=== PATIENT | female | born 1955 | race Caucasian/White ===

== ENCOUNTER 2017-06-21 09:41 | Emergency (ER) | payer MEDICARE, BC ==
[2017-06-21 10:05] VITALS: RESP 18; TEMP 99.2
--- NOTE | 2017-06-21 10:16 | ED PDOC ---
Arrival/HPI - General Chief Complaint: Female Genitourinary Time Seen by Provider: 06/21/17 09:45 Historian: Patient - History of Present Illness Narrative History of Present Illness (Text): 06/21/17 10:12 62 y/o female, pmh including chronic UTI/renal transplant (on immunosuppressant medications)/htn/hypothyroidism, allergic to antithymocyte (causes hypotension which she was intubated because of this medication), c/o urinary frequency and urgency started last night. Pt. stated that she has frequent UTI and usually several times per year which she's very successful with the ciprofloxacin which her own gravity prospecting operator will prescribe it to her, stated that she has very good sensitivity to this fluoroquinolone class without hospitalization. Pt. has no nausea or vomiting, no fever or chills, no night sweat, no dizziness, no numbness or tingling, no palpitation, no rash, no abdominal or flank pain, no other medical or psychological complaints. Past Medical History - Provider Review Nursing Documentation Reviewed: Yes - Infectious Disease Hx of Infectious Diseases: None - Reproductive Menopause: Yes - Renal Hx Dialysis: Yes Other/Comment: kidney tranplant - Endocrine/Metabolic Hx Endocrine Disorders: No - Psychiatric Hx Substance Use: No - Anesthesia Hx Anesthesia: No Family/Social History - Physician Review Nursing Documentation Reviewed: Yes Family/Social History: Unknown Family HX Smoking Status: Unknown If Ever Smoked Hx Alcohol Use: No Hx Substance Use: No Allergies/Home Meds Allergies/Adverse Reactions: Allergies anti thmocyte globulin Allergy (Uncoded 06/21/17 10:16) RASH Home Medications: Home Meds Medication Instructions Recorded Confirmed Aspirin [Ecotrin] 81 mg PO DAILY 06/21/17 06/21/17 Atorvastatin [Lipitor] 40 mg PO DAILY 06/21/17 06/21/17 Calcium [place] 2 tab PO BID 06/21/17 06/21/17 Cholecalciferol [Vitamin D] 1,000 iu PO DAILY 06/21/17 06/21/17 Furosemide [Lasix] 40 mg PO DAILY 06/21/17 06/21/17 Levothyroxine [Levoxyl] 0.125 mg PO DAILY 06/21/17 06/21/17 Mag Oxide 400mg 400 mg PO BID 06/21/17 06/21/17 Mycophenolate Mofetil HCl 750 mg PO BID 06/21/17 06/21/17 [Cellcept] Prednisone [Gus] 5 mg PO DAILY 06/21/17 06/21/17 Ranitidine HCl [Zantac] 150 mg PO DAILY 06/21/17 06/21/17 Repaglinide [Prandin] 2 mg PO TID 06/21/17 06/21/17 Tacrolimus [Prograf] 1 mg PO DAILY 06/21/17 06/21/17 amLODIPine [Norvasc] 10 mg PO DAILY 06/21/17 06/21/17 Review of Systems - Review of Systems Constitutional: absent: Fatigue, Fevers Eyes: absent: Vision Changes ENT: absent: Hearing Changes Respiratory: absent: SOB, Cough Cardiovascular: absent: Chest Pain Gastrointestinal: absent: Abdominal Pain, Nausea, Vomiting Genitourinary Female: Dysuria, Frequency. absent: Hematuria, Urine Output Changes, Vaginal Bleeding, Vaginal Discharge Musculoskeletal: absent: Arthralgias, Myalgias Skin: absent: Rash, Pruritis, Skin Lesions Neurological: absent: Headache, Dizziness Psychiatric: absent: Anxiety, Depression Physical Exam Vital Signs Reviewed: Yes Vital Signs Temp Pulse Resp BP Pulse Ox 06/21/17 09:59 99.2 F 96 H 18 131/86 99 Temperature: Afebrile Blood Pressure: Normal Pulse: Regular Respiratory Rate: Normal Appearance: Positive for: Well-Appearing, Non-Toxic, Comfortable Pain Distress: None Mental Status: Positive for: Alert and Oriented X 3 - Systems Exam Head: Present: Atraumatic, Normocephalic Pupils: Present: PERRL Extroacular Muscles: Present: EOMI Conjunctiva: Present: Normal Mouth: Present: Moist Mucous Membranes Neck: Present: Normal Range of Motion Respiratory/Chest: Present: Clear to Auscultation, Good Air Exchange. No: Respiratory Distress, Accessory Muscle Use Cardiovascular: Present: Regular Rate and Rhythm, Normal S1, S2. No: Murmurs Abdomen: Present: Normal Bowel Sounds. No: Tenderness, Distention, Peritoneal Signs, Rebound, Guarding Back: Present: Normal Inspection. No: CVA Tenderness Upper Extremity: Present: Normal Inspection. No: Cyanosis, Edema Lower Extremity: Present: Normal Inspection. No: Edema Neurological: Present: GCS=15, Speech Normal, Motor Func Grossly Intact, Gait Normal, Memory Normal Skin: Present: Warm, Dry, Normal Color. No: Rashes Psychiatric: Present: Alert, Oriented x 3, Normal Insight, Normal Concentration Medical Decision Making ED Course and Treatment: 06/21/17 10:14 -Pt. is eating and drinking well, no change in energy, no fatigue/fever or chills, no emergent indication of labs indicated except UA and Urine culture. -I discussed with the patient about the fluoroquinolones side effect including but not limited to prolong QT and possible achilles tendon rupture which she stated that she is awared and still prefer ciprofloxacin. -Pending for the UA result. 06/21/17 10:50 -UA show +UTI, pt. stated that she usually placed on cipro for 5 days. Clinically, uncomplicated for 3 days and severe for 7 days, will placed her for 5 days. -Discharge home with ciprofloxacin, pyridium, stay hydrated, stay hydrated, bed rest, follow up with your own pmd and gravity prospecting operator within 2 days, return to the ER for any new or worsening signs or symptoms. - Lab Interpretations Lab Results: Lab Results 06/21/17 10:05: Urine Color Yellow, Urine Appearance Cloudy, Urine pH 6.5, Ur Specific [place] 1.020, Urine Protein 30 H, Urine Glucose (UA) Negative, Urine Ketones Negative, Urine Blood Small H, Urine Nitrate Negative, Urine Bilirubin Negative, Urine Urobilinogen 0.2, Ur Leukocyte Esterase Moderate H, Urine RBC 0 - 2, Urine WBC Tntc, Ur Epithelial Cells 1 - 3, Urine Bacteria Many I have reviewed the lab results: Yes Interpretation: Abnormal lab values (+UTI) - Medication Orders Current Medication Orders: Discontinued Medications Ciprofloxacin (Cipro) 500 mg PO ONCE STA PRN Reason: Protocol Stop: 06/21/17 10:50 - PA / GEOPHYSICAL PROSPECTING SURVEYOR / Resident Statement / has reviewed & agrees with the documentation as recorded. Disposition/Present on Arrival - Present on Arrival Any Indicators Present on Arrival: No History of DVT/PE: No History of Uncontrolled Diabetes: No Urinary Catheter: No History of Decub. Ulcer: No History Surgical Site Infection Following: None - Disposition Have Diagnosis and Disposition been Completed?: Yes Diagnosis: UTI (urinary tract infection) Disposition: HOME/ ROUTINE Disposition Time: 10:51 Patient Plan: Discharge Patient Problems: Current Active Problems Problem Status Onset UTI (urinary tract infection) Acute Condition: GOOD Additional Instructions: -Discharge home with ciprofloxacin, pyridium, stay hydrated, stay hydrated, bed rest, follow up with your own pmd and gravity prospecting operator within 2 days, return to the ER for any new or worsening signs or symptoms. Prescriptions: Ciprofloxacin [Cipro] 500 mg PO BID #10 tab Phenazopyridine HCl [Pyridium] 200 mg PO TID #6 tablet Referrals: Linsey Dowd MD [Staff Provider] - Follow up with primary Forms: WORK NOTE
[2017-06-21 10:31] LABS: PH,URINE 6.5 (4.7-8.0); URINE BILIRUBIN NEGATIVE (NEGATIVE); URINE BLOOD SMALL (NEGATIVE); URINE GLUCOSE (UA) NEGATIVE (NEGATIVE); URINE KETONE NEGATIVE (NEGATIVE); URINE LEUKOCYTE ESTERASE MODERATE Leu/uL (NEGATIVE); URINE PROTEIN 30 mg/dL (<30 mg/dL); URINE UROBILINOGEN 0.2 E.U./dL (<1 E.U./dL)
[2017-06-21 10:42] LABS: URINE APPEARANCE CLOUDY (CLEAR); URINE COLOR YELLOW (YELLOW)
[2017-06-21 10:45] LABS: URINE BACTERIA MANY (NEG); URINE RBC 0 - 2 /hpf (0-2); URINE WBC TNTC /hpf (0-6)
[2017-06-21 11:01] VITALS: BP 128/79; PULSE 89; O2SAT 98
== END 2017-06-21 11:03 | disposition home or self-care (01) ==
LOC: ED 09:41
DX: N39.0 Urinary tract infection, site not specified (principal); I10 Essential (primary) hypertension; E03.9 Hypothyroidism, unspecified; Z94.0 Kidney transplant status